=== PATIENT | female | born 1990 | race Caucasian/White ===

== ENCOUNTER 2019-09-14 10:42 | Outpatient (CLI) | payer OTHER | END 2019-09-14 11:04 | disposition home or self-care (01) | LOC: LAB 10:42 | DX: N39.0 Urinary tract infection, site not specified (principal); E78.49 Other hyperlipidemia; Z00.00 Encounter for general adult medical examination without abnormal findings; E55.9 Vitamin D deficiency, unspecified; R42 Dizziness and giddiness; J11.1 Influenza due to unidentified influenza virus with other respiratory manifestations; R00.2 Palpitations ==

== ENCOUNTER 2019-09-14 11:31 | Outpatient (CLI) | payer OTHER | END 2019-09-14 11:35 | disposition home or self-care (01) | LOC: SONOGRAMA 11:31 | DX: R10.2 Pelvic and perineal pain (principal) ==